=== PATIENT | female | born 1980 ===

== ENCOUNTER 2018-11-05 08:37 | Day surgery (SDC) | payer BC ==
[2018-11-05] MEDS ORDERED: SUBLIMAZE IV PRN (09:21)
[2018-11-05] MEDS ORDERED: ZOFRAN IV PRN (09:21)
--- NOTE | 2018-11-05 09:27 | Anesthesia Consultation ---
Anesthesia Consult and Med Hx Date of service: 11/05/18 - Airway Anesthetic Teeth Evaluation: Good ROM Head & Neck: Adequate Mental/Hyoid Distance: Adequate Mallampati Class: Class II Intubation Access Assessment: Probably Good - Pre-Operative Health Status ASA Pre-Surgery Classification: ASA2 Proposed Anesthetic Plan: General - Pulmonary Hx Smoking: No Hx Sleep Apnea: No (YUAN PRE SCREEN LOW RISK) - Cardiovascular System Hx Hypertension: Yes (X 1 MONTH) - Central Nervous System Hx Neuromuscular Disorder: Yes (Migraines) Hx Back Pain: Yes - Gastrointestinal Hx Gastroesophageal Reflux Disease: Yes - Endocrine Hx Non-Insulin Dependent Diabetes: No (GESTATIONAL) - Hematic Hx Anemia: Yes - Other Systems Hx Cancer: No - Additional Comments Anesthesia Medical History Comments: cleared by pcp
--- NOTE | 2018-11-05 09:27 | Anesthesia Day of Surgery ---
Anesthesia Day of Surgery - Day of Surgery Patient Examined: Yes Patient H&P Reviewed: Yes Patient is NPO: Yes
[2018-11-05 09:49] LABS: Basophils # (Auto) 0.1 K/mm3 (0.0-0.1); Basophils % (Auto) 0.9 % (0.0-1.8); Eosinophils # (Auto) 0.1 K/mm3 (0.0-0.4); Eosinophils % (Auto) 0.9 % (0.0-4.3); Hematocrit 35.7 % (30.3-42.9); Lymphocytes # (Auto) 1.7 K/mm3 (1.2-5.4); Lymphocytes % (Auto) 26.4 % (13.4-35.0); Mean Corpuscular HGB Conc 34 % (30-34); Mean Corpuscular Volume 89 fl (79-97); Monocytes # (Auto) 0.5 K/mm3 (0.0-0.8); Monocytes % (Auto) 7.4 % (0.0-7.3); Platelet Count 214 K/mm3 (140-440); Red Blood Count 3.99 M/mm3 (3.65-5.03); Red Cell Distribution Width 14.5 % (13.2-15.2)
[2018-11-05] MEDS ORDERED: LACTATED RINGERS 1,000 ML IV SCH (10:00)
[2018-11-05] MEDS ORDERED: VERSED IV NR (10:00)
[2018-11-05] MEDS ORDERED: XYLOCAINE MPF 2% ONE ×2 (10:21→10:32)
[2018-11-05] MEDS ORDERED: ZOFRAN ONE ×2 (10:21→10:32)
[2018-11-05] MEDS ORDERED: DECADRON ONE ×2 (10:21→10:32)
[2018-11-05] MEDS ORDERED: DIPRIVAN 10 MG/ML IV ONE ×2 (10:22→10:31)
[2018-11-05] MEDS ORDERED: SUBLIMAZE ONE ×2 (10:22→10:31)
[2018-11-05] MEDS ORDERED: NACL 0.9% IR ONE ×2 (10:54)
[2018-11-05 12:03] VITALS: BP 117/81
--- NOTE | 2018-11-05 13:17 | Operative Report ---
Operative Report Operative Report: Preoperative diagnosis: 1. Abnormal uterine bleeding. 2. Thickened endometrium. 3. Leiomyomae. 4. Endometrial polyps. Postoperative diagnosis: same as preoperative diagnosis. Procedure: 1. Hysteroscopy. 2. D&C 3. Endometrial polypectomy. Surgeon: Dr. Velasco Radar Repairer: none Anesthesia: IV sedation with MAC. EBL: minimal IVF: RL 1 liter Complications: none Procedure details: The risks, benefits, and alternatives of the procedure were discussed in detail with the patient which included but not limited to infection, hemorrhage requiring a, and uterine perforation. The patient expressed understanding, her questions answered, and she gave informed consent. The patient was taken to the operating room with an IVF infusing Ringer's lactate. In the operating room, she was placed in the dorsal supine position and given IV sedation with MAC. Then, she was placed on the stirrups in a dorsal lithotomy position. The perineum vagina and cervix were washed and she was prepared and draped in the usual sterile fashion. Examination under anesthesia revealed normal external genitalia and vagina. The cervix was closed, long, posterior with mild bleeding at the os. The uterus was enlarged to 16-18 week size with irregular countour, anteverted, mobile, the adnexae were nonpalpable. A weighted speculum was placed placed on the posterior vaginal wall. The anterior lip of the cervix was grasped with a single-tooth tenaculum. Endocervical curettage was done. The cervical os was dilated and the hysteroscope was introduced into the uterine cavity. It revealed thickened endometrial lining with small polyps. The ostia were not visualized. The hysteroscope was removed from the uterine cavity. A gentle curettage was performed and multiple small polyps were removed until a gritty texture was noticed. The specimen which consisted of ECC, EMC and endometrial polyps was sent to pathology. The instruments were removed from the cervix and vagina. The count of laps, needles, sponges, and instrument were correct 2. The patient tolerated the procedure well. She was awakened from the anesthesia and taken to the recovery room in a stable condition.
== END 2018-11-05 12:40 | disposition home or self-care (01) ==
LOC: OR 08:37
PROVIDERS: ATTEND Obstetrics & Gynecology
DX: N84.0 Polyp of corpus uteri (principal); N93.8 Other specified abnormal uterine and vaginal bleeding; R93.89 Abnormal findings on diagnostic imaging of other specified body structures; I10 Essential (primary) hypertension; K21.9 Gastro-esophageal reflux disease without esophagitis; G43.909 Migraine, unspecified, not intractable, without status migrainosus; E11.9 Type 2 diabetes mellitus without complications; Z79.899 Other long term (current) drug therapy; Z98.51 Tubal ligation status; Z90.49 Acquired absence of other specified parts of digestive tract; Z86.2 Personal history of diseases of the blood and blood-forming organs and certain disorders involving the immune mechanism
CPT/HCPCS: 36415; 58558; 81025; 85025; 88305; A4217; J1100; J2250; J2405; J2704; J3010; J7120